=== PATIENT | male | born 1970 | race Caucasian/White ===

== ENCOUNTER 2016-08-09 11:58 | Emergency (ER) | payer OTHER ==
[2016-08-09 12:11] VITALS: RESP 18
--- NOTE | 2016-08-09 12:23 | ED ---
Abdominal Pain HPI - General Chief Complaint: Abdominal Pain Stated Complaint: Abdominal Pain Time Seen by Provider: 08/09/16 12:18 Source: patient Mode of arrival: ambulatory Limitations: no limitations - History of Present Illness Initial Comments: This is a 46-year-old male with no past medical history presents emergency department for sudden onset of epigastric and right upper quadrant pain. He states that it started shortly after he ate some pieces of chicken. He states that it was so severe that he felt like he could not breathe. He states it seems to come and go. There is since subsided and he feels back to normal now. He denies any nausea or vomiting. No diarrhea. No history of constipation. He denies any fevers or chills. No other complaints. - Related Data Home Medications Medication Instructions Recorded Confirmed Ibuprofen [Motrin] 600 mg PO Q6HR PRN 08/09/16 08/09/16 Allergies Allergy/AdvReac Type Severity Reaction Status Date / Time No Known Allergies Allergy Verified 08/09/16 12:39 Review of Systems ROS Statement: Those systems with pertinent positive or pertinent negative responses have been documented in the HPI. ROS Other: All systems not noted in ROS Statement are negative. Past Medical History Past Medical History: No Reported History History of Any Multi-Drug Resistant Organisms: None Reported Past Surgical History: No Surgical Hx Reported Past Psychological History: Anxiety Smoking Status: Never smoker Past Alcohol Use History: None Reported Past Drug Use History: None Reported General Exam - General Exam Comments Initial Comments: Constitutional: Awake alert Appears comfortable Head: Normocephalic atraumatic Eyes: no conjunctival injection No scleral icterus EOMI Neck: No JVD Supple Heart: Regular rate rhythm normal S1-S2 no murmurs Lungs: Clear to auscultation bilaterally No wheezing No rales Abdomen: Soft nondistended nontender Extremities: Non edematous DP pulses intact Radial pulses intact Neuro: A&Ox3 No focal neurologic deficits Psych: Appropriate mood and affect Limitations: no limitations Course Vital Signs 08/09/16 08/09/16 12:08 14:22 Temperature 97.3 F L 97.4 F L Pulse Rate 68 85 Respiratory 18 18 Rate Blood Pressure 145/65 140/76 O2 Sat by Pulse 100 100 Oximetry - Reevaluation(s) Reevaluation #1: 08/09/16 12:45 EKG showing sinus bradycardia with a rate of 58. No ST segment changes or T- wave inversions. QTC is 404. Other intervals normal. No ectopy. Medical Decision Making - Medical Decision Making This is a 46-year-old male presents emergency department for epigastric abdominal pain that had resolved by the time he got to the ER. Blood work was reviewed and shows what appears to be pancreatitis and some mild elevation in LFTs. Ultrasound shows gallstones area rest was labwork was unremarkable. The patient has hadsymptoms since being in emergency department. And would like to go home. I spoke with Dr. Nugent who states that he would feel comfortable following up with them as an outpatient. He can see him tomorrow. I gave him Dr. Harris's information as well. He can return if he has worsening symptoms. All questions were answered. - Lab Data Result diagrams: 08/09/16 12:30 08/09/16 12:30 Lab Results 08/09/16 08/09/16 Range/Units 12:30 12:30 WBC 6.0 (3.8-10.6) k/uL RBC 4.62 (4.30-5.90) m/uL Hgb 13.8 (13.0-17.5) gm/dL Hct 43.1 (39.0-53.0) % MCV 93.2 (80.0-100.0) fL MCH 29.8 (25.0-35.0) pg MCHC 32.0 (31.0-37.0) g/dL RDW 13.1 (11.5-15.5) % Plt Count 180 (150-450) k/uL Neutrophils % 72 % Lymphocytes % 17 % Monocytes % 8 % Eosinophils % 1 % Basophils % 0 % Neutrophils # 4.3 (1.3-7.7) k/uL Lymphocytes # 1.0 (1.0-4.8) k/uL Monocytes # 0.5 (0-1.0) k/uL Eosinophils # 0.1 (0-0.7) k/uL Basophils # 0.0 (0-0.2) k/uL Sodium 144 (137-145) mmol/L Potassium 3.9 (3.5-5.1) mmol/L Chloride 104 (98-107) mmol/L Carbon Dioxide 30 (22-30) mmol/L Anion Gap 10 mmol/L BUN 16 (9-20) mg/dL Creatinine 1.07 (0.66-1.25) mg/dL Est GFR (MDRD) Af Amer >60 (>60 ml/min/1.73 sqM) Est GFR (MDRD) Non-Af >60 (>60 ml/min/1.73 sqM) Glucose 106 H (74-99) mg/dL Calcium 9.6 (8.4-10.2) mg/dL Total Bilirubin 0.7 (0.2-1.3) mg/dL AST 198 H (17-59) U/L ALT 95 H (21-72) U/L Alkaline Phosphatase 61 (38-126) U/L Total Protein 6.8 (6.3-8.2) g/dL Albumin 4.1 (3.5-5.0) g/dL Amylase 437 H* (30-110) U/L Lipase 3434 H (23-300) U/L Disposition Clinical Impression: Pancreatitis, Gallstones Disposition: HOME SELF-CARE Condition: Stable Instructions: Pancreatitis (ED) Additional Instructions: Please follow clear liquid diet for the next 24 hours. Follow-up with Dr. David tomorrow. Referrals: Abelardo Dia Jr, DO [Primary Care Provider] - 1-2 days Cesar Pathak MD [STAFF PHYSICIAN] - 1-2 days
[2016-08-09 12:42] LABS: Basophils % (A) 0 %; CH 30.7; CHCM 33.1; Eosinophils # (A) 0.1 k/uL (0-0.7); Eosinophils % (A) 1 %; HCT 43.1 % (39.0-53.0); HDW 2.58; HGB 13.8 gm/dL (13.0-17.5); Luc # (Auto) 0.11; Luc % (Auto) 2; Lymphocytes % (A) 17 %; MCH 29.8 pg (25.0-35.0); MCV 93.2 fL (80.0-100.0); Mean Platelet Volume 7.2; Monocytes # (A) 0.5 k/uL (0-1.0); Monocytes % (A) 8 %; Neutrophils # (A) 4.3 k/uL (1.3-7.7); Neutrophils % (A) 72 %; RBC 4.62 m/uL (4.30-5.90); RDW 13.1 % (11.5-15.5); WBC (Perox) 5.83
[2016-08-09 12:50] LABS: ALT 95 U/L (21-72); AST 198 U/L (17-59); Alkaline Phosphatase 61 U/L (38-126); Anion Gap 10 mmol/L; Blood Urea Nitrogen 16 mg/dL (9-20); Calcium 9.6 mg/dL (8.4-10.2); Carbon Dioxide 30 mmol/L (22-30); Chloride 104 mmol/L (98-107); Glucose 106 mg/dL (74-99); Non-African American GFR(MDRD) >60 (>60 ml/min/1.73 sqM); Potassium 3.9 mmol/L (3.5-5.1); Sodium 144 mmol/L (137-145); Total Bilirubin 0.7 mg/dL (0.2-1.3); Total Protein 6.8 g/dL (6.3-8.2)
[2016-08-09 12:59] LABS: Amylase 437 U/L (30-110)
[2016-08-09] MEDS ORDERED: SODIUM CHLORIDE 0.9% 1,000 ML IV ONE (13:30)
[2016-08-09] MEDS ORDERED: SODIUM CHLORIDE 0.9% 1,000 ML IV SCH (13:30)
[2016-08-09] MEDS ORDERED: AZITHROMYCIN 500 MG TAB PO STA (13:32)
[2016-08-09] MEDS ORDERED: cefTRIAXone 250 MG VIAL IM STA (13:32)
--- NOTE | 2016-08-09 13:56 | US ---
EXAMINATION TYPE: US abdomen limited DATE OF EXAM: 08/09/2016 1:33 PM COMPARISON: No previous CLINICAL HISTORY: Epigastric/RUQ pain. Epigastric pain, patient not NPO EXAM MEASUREMENTS: Liver Length: 13.2 cm Gallbladder Wall: 0.2 cm CBD: 0.4 cm Right Kidney: 10.4 x 5.0 x 4.3 cm TECHNOLOGIST IMPRESSION: Pancreas: visualized portions wnl, tail obscured by overlying midline bowel gas Liver: slightly heterogeneous echotexture without any definite lesions seen at this time Gallbladder: limited visualization - patient not NPO, appears to be full of echogenic shadowing ston es with shadowing limiting visualization of posterior wall, anterior wall measures wnl Evidence for sonographic Pond's sign: no CBD: visualized portions wnl Right Kidney: multiple hypoechoic cystic areas inferior pole with largest measuring 2.0cm, 1.7cm hyp oechoic cystic area midpole - ? Small amount of fluid in renal pelvis IMPRESSION: 1. CHOLELITHIASIS. 2. MULTIPLE RIGHT RENAL CYSTS. THE LARGEST MEASURES 2 CM AND APPEARS SIMPLY CYSTIC.
[2016-08-09 14:24] VITALS: BP 140/76; PULSE 85; TEMP 97.4
== END 2016-08-09 14:28 | disposition home or self-care (01) ==
LOC: EC 11:58
DX: K85.10 Biliary acute pancreatitis without necrosis or infection (principal)
CPT/HCPCS: 36415; 76705; 80053; 82150; 83690; 85025; 93005; 96372; 99284

== ENCOUNTER 2016-08-24 06:40 | Day surgery (SDC) | payer OTHER ==
[2016-08-20 09:33] VITALS: BMI 21.1
[~2016-08-24 06:40] MED LIST: DEXAMETHASONE SOD PHOSPHATE 10 MG/ML 1 ML VIAL IV ONE; HEPARIN SODIUM,PORCINE 5,000 UNIT/ML 1 ML VIAL SQ ONE; HYDROmorphone 1 MG/ML 1 ML SYRINGE IVP PRN; LIDOCAINE 1% 20 ML VIAL (10MG/ML) FOR IV START INTRADERMA PRN; MIDAZOLAM 2 MG/2 ML VIAL IV PRN; ONDANSETRON 4 MG/2 ML VIAL IVP ONE; SCOPOLAMINE 1.5MG/72HR PATCH TRANSDERM ONE; ceFAZolin 2 GM in SODIUM CHLORIDE 0.9% 100 ML IVPB ONE
[2016-08-24 07:07] VITALS: RESP 16
[2016-08-24] MEDS ORDERED: BUPIVACAIN-EPI 0.25%-1:200,000 30 ML VIAL SQ ONE ×3 (07:18→08:11)
[2016-08-24] MEDS: LACTATED RINGERS 1,000 ML IV SCH ×2 (07:26→12:18)
--- NOTE | 2016-08-24 07:47 | P.GSHP ---
History of Present Illness H&P Date: 08/24/16 Chief Complaint: Right upper quadrant pain This is a 46-year-old male who's had complaints of right upper quadrant pain. His recent ultrasound shows evidence of cholelithiasis. He presents today for laparoscopic cholecystectomy - Constitutional Constitutional: Reports as per HPI Past Medical History Past Medical History: No Reported History Additional Past Medical History / Comment(s): GALLBLADDER DISORDER History of Any Multi-Drug Resistant Organisms: None Reported Past Surgical History: No Surgical Hx Reported Past Anesthesia/Blood Transfusion Reactions: No Reported Reaction Additional Past Anesthesia/Blood Transfusion Reaction / Comment(s): NO PRIOR ANESTHESIA HX Past Psychological History: Anxiety Smoking Status: Never smoker Past Alcohol Use History: None Reported Past Drug Use History: None Reported - Past Family History Mother Family Medical History: No Reported History Medications and Allergies Home Medications Medication Instructions Recorded Confirmed Type Ibuprofen [Motrin] 600 mg PO Q6HR PRN 08/09/16 08/20/16 History Allergies Allergy/AdvReac Type Severity Reaction Status Date / Time No Known Allergies Allergy Verified 08/24/16 06:52 Surgical - Exam Vital Signs Temp Pulse Resp BP Pulse Ox 97.4 F L 54 L 16 138/86 99 08/24/16 07:05 08/24/16 07:05 08/24/16 07:05 08/24/16 07:05 08/24/16 07:05 - General well developed, no distress - Eyes PERRL - ENT normal pinna, normal nares - Neck no masses - Respiratory normal expansion - Cardiovascular Rhythm: regular - Abdomen Abdomen: soft, non tender Assessment and Plan Plan: Right quadrant pain Cholelithiasis We'll perform laparoscopic cholecystectomy
[2016-08-24] MEDS ORDERED: PROPOFOL 10 MG/ML 20 ML VIAL IV ONE (07:50)
[2016-08-24] MEDS ORDERED: SUCCINYLCHOLINE CHLORIDE 100 MG/5 ML SYR IV ONE (07:50)
[2016-08-24] MEDS ORDERED: GLYCOPYRROLATE 0.2 MG/ML 2 ML VIAL ONE (07:50)
[2016-08-24] MEDS ORDERED: ROCURONIUM BROMIDE 10 MG/ML 10 ML VIAL IV ONE (07:50)
[2016-08-24] MEDS ORDERED: LIDOCAINE 1% INJ 10MG/ML (20 ML MDV) ONE (07:50)
[2016-08-24] MEDS ORDERED: NEOSTIGMINE 1 MG/ML 10 ML VIAL ONE (07:50)
[2016-08-24] MEDS ORDERED: fentaNYL (PF) 50 MCG/ML 2 ML AMP ONE (07:50)
[2016-08-24] MEDS ORDERED: MIDAZOLAM 2 MG/2 ML VIAL ONE (07:50)
--- NOTE | 2016-08-24 08:30 | P.OP ---
Date of Procedure: 08/24/16 Preoperative Diagnosis: Cholecystitis Cholelithiasis Postoperative Diagnosis: Cholecystitis Cholelithiasis Procedure(s) Performed: Laparoscopic cholecystectomy Anesthesia: LANA Surgeon: Cesar Pathak Estimated Blood Loss (ml): 5 Pathology: other (Gallbladder) Condition: stable Disposition: PACU Description of Procedure: The patient was placed on the operating table. The patient received a general endotracheal tube anesthesia. The patients abdomen was prepped and draped in the usual sterile fashion. Through an infraumbilical stab incision, the fascia of the anterior abdominal wall was grasped with a pair of Kochers and then the Veress needle was placed in the peritoneal cavity. Position of the Veress needle was confirmed with positive drop test. The abdomen was then insufflated. After adequate insufflation, the 10 mm trocar was placed in the peritoneal cavity. Following this the laparoscope was placed in the peritoneal cavity. The patient was placed in the head-up, right side up position and then a 5 mm trocar was placed in the right lateral and right subcostal position under direct visualization. A 8 mm trocar was placed in the epigastric position. The gallbladder was grasped in the fundus and infundibulum. Traction on the gallbladder was placed in the lateral and the cephalad positions. The triangle of Calot was visualized.. The cystic duct was bluntly dissected until the union of the cystic duct and common bile duct was seen. The cystic duct was then divided and sealed with the Harmonic scissors. A PDS Endoloop was then placed throughout the cystic duct stump. The cystic artery divided and sealed with the Harmonic scissors. The gallbladder was then removed from the liver bed using Harmonic scissors. The gallbladder was then extracted through the epigastric port site. Operative field was checked for any bleeding spots and Harmonic scissors was used to coagulate the liver bed. The abdomen was irrigated. The trocars were removed. The skin was closed using interrupted 3-0 Vicryl suture. Dermabond dressing were applied. The patient tolerated the procedure well.
[2016-08-24 09:17] VITALS: TEMP 97.1
[2016-08-24] MEDS ORDERED: HYDROcodone/APAP 7.5-325MG 1 EACH TAB PO ONE (10:09)
[2016-08-24 12:07] VITALS: BP 130/78; PULSE 50
== END 2016-08-24 12:36 | disposition home or self-care (01) ==
LOC: OR 06:40
PROVIDERS: ATTEND Surgery
DX: K80.10 Calculus of gallbladder with chronic cholecystitis without obstruction (principal); Z79.1 Long term (current) use of non-steroidal anti-inflammatories (NSAID)
CPT/HCPCS: 88304; 47562; J2250; J1644; J1100; J2710; J0690; J2405; J2001; J3010; J0330; J2704

== ENCOUNTER → 2024-11-29 | Outpatient (CLI) | payer OTHER ==
[2024-11-29 14:53] LABS: HCT 47.8 % (39.6-50.0); MCHC 31.4 g/dL (32.0-37.0); MCV 95.6 FL (80.0-97.0); Mean Platelet Volume 10.3 FL (9.5-12.2); NRBC Per 100 WBC 0 X 10*3/uL (0.00-0.01); Platelet Count 219 X 10*3/uL (140-440); RDW 13.5 % (11.5-14.5); WBC 4.95 X 10*3/uL (4.50-10.00)
[2024-11-29 15:19] LABS: ALT 19 U/L (10-49); AST 23 U/L (14-35); Albumin 4.4 g/dL (3.8-4.9); Albumin/Globulin Ratio 1.83 Ratio (1.60-3.17); Alkaline Phosphatase 69 U/L (41-126); BUN/Creat Ratio 15.64 Ratio (12.00-20.00); Blood Urea Nitrogen 17.2 mg/dL (9.0-27.0); Calcium 9.2 mg/dL (8.7-10.3); Carbon Dioxide 24.6 mmol/L (21.6-31.8); Chloride 107 mmol/L (96-109); Chol/HDL Ratio 2.56 Ratio; Globulin 2.4 g/dL (1.6-3.3); Glucose 106 mg/dL (70-110); LDL Cholesterol,Calculated 110.4 mg/dL (0.0-131.0); Potassium 4.6 mmol/L (3.5-5.5); Prostate Specific Antigen 1.35 ng/mL (0.000-3.500); Sodium 143 mmol/L (135-145); Total Bilirubin 0.8 mg/dL (0.3-1.2); Total Protein 6.8 g/dL (6.2-8.2); VLDL Calculation 16.22 mg/dL (5.00-40.00)
== END | disposition home or self-care (01) ==
LOC: LABWHC1 08:50
PROVIDERS: ATTEND Family Medicine
DX: Z00.00 Encounter for general adult medical examination without abnormal findings (principal)
CPT/HCPCS: 36415; 80053; 80061; 84153; 85027